=== PATIENT | female | born 1955 | race Hispanic/Latino ===

== ENCOUNTER 2019-11-29 08:44 | Emergency (ER) | payer SELFPAY ==
[2019-11-29 08:51] VITALS: BP 163/83
--- NOTE | 2019-11-29 10:06 | Emergency Department Report ---
ED Fall HPI - General Chief Complaint: Fall Stated Complaint: RT ARM PAIN Time Seen by Provider: 11/29/19 09:47 Source: patient Mode of arrival: Ambulatory - History of Present Illness Initial Comments: 64-year-old female presents to the emergency room complaining of right shoulder right forearm and right upper arm pain status post fall this morning. Patient states that her car was moving and she jumped into to stop it and tripped states she had fallen while trying to get to work. Patient states she made it to work but was sent to the ER for her injuries. 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 MD Complaint: fall -: This morning Fall From: standing Location - Extremities: Right: Shoulder, Arm, Forearm Severity scale (0 -10): 9 Quality: aching Context: tripped/slipped Associated Symptoms: denies - Related Data Allergies Allergy/AdvReac Type Severity Reaction Status Date / Time No Known Allergies Allergy Unverified 11/29/19 08:45 ED Review of Systems ROS: Stated complaint: RT ARM PAIN Other details as noted in HPI Comment: All other systems reviewed and negative ED Past Medical Hx - Past Medical History Previous Medical History?: No - Surgical History Past Surgical History?: No - Social History Smoking Status: Never Smoker Substance Use Type: None ED Physical Exam - General Limitations: No Limitations General appearance: alert, in distress - Head Head exam: Present: atraumatic, normocephalic - Eye Eye exam: Present: normal appearance - ENT ENT exam: Present: mucous membranes moist - Neck Neck exam: Present: full ROM - Expanded Upper Extremity Exam Right Shoulder Exam: Present: full ROM, tenderness Upper Arm exam: Present: normal inspection, full ROM, tenderness Forearm Wrist exam: Present: full ROM, tenderness, swelling - Neurological Exam Neurological exam: Present: alert, oriented X3, normal gait - Psychiatric Psychiatric exam: Present: normal affect, normal mood - Skin Skin exam: Present: warm, dry, intact, normal color. Absent: rash ED Course Vital Signs 11/29/19 08:49 Temperature 97.7 F Pulse Rate 75 Respiratory 16 Rate Blood Pressure 163/83 [Left] O2 Sat by Pulse 99 Oximetry ED Medical Decision Making - Radiology Data Radiology results: report reviewed Patient: LUBNA THORNTON MR#: [id number] : 1955 Acct:[id number] Age/Sex: 64 / F ADM Date: 11/29/19 Loc: ED Attending Dr: Ordering Physician: NANDO TERESA Date of Service: 11/29/19 Procedure(s): XR shoulder 1V RT Accession Number(s): [id number] cc: NANDO TERESA Fluoro Time In Minutes: RIGHT SHOULDER ONE VIEW INDICATION / CLINICAL INFORMATION: PAIN AFTER FALL. COMPARISON: None available. FINDINGS: No significant skeletal abnormality Signer Name: Reese Curran MD FACR Signed: 11/29/2019 10:42 AM Workstation Name: [id number] Transcribed By: MS Dictated By: Reese Curran MD Electronically Authenticated By: Reese Curran MD Signed Date/Time: 11/29/19 104 DD/ 1041 TD/TT: - Medical Decision Making 64-year-old female presents to the emergency room complaining of right shoulder right forearm and right upper arm pain status post fall this morning. Patient states that her car was moving and she jumped into to stop it and t ripped states she had fallen while trying to get to work. Patient states she made it to work but was sent to the ER for her injuries. 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 Critical care attestation.: If time is entered above; I have spent that time in minutes in the direct care of this critically ill patient, excluding procedure time. ED Disposition Clinical Impression: Fall, Abrasion of right upper arm, initial encounter, Right anterior shoulder pain, Pain, joint, forearm, right Disposition: DC-01 TO HOME OR SELFCARE Is pt being admited?: No Does the pt Need Aspirin: No Condition: Stable Instructions: Fall Prevention for Older Adults (ED), Abrasion (ED), Shoulder Sprain (ED), Arthralgia (ED) Additional Instructions: X-rays were all negative for any acute abnormalities. Keep your abrasion clean and dry. Follow-up with an orthopedic provider if her symptoms persist. Take Tylenol as needed for pain management. Referrals: PRIMARY CAREMD [Primary Care Provider] - 3-5 Days DARRYL CARRASCO MD [Staff Physician] - 3-5 Days Forms: Work/School Release Form(ED)
--- NOTE | 2019-11-29 10:45 | XRay Report ---
RIGHT FOREARM 3 VIEWS INDICATION / CLINICAL INFORMATION: PAIN AFTER FALL. COMPARISON: None available. FINDINGS: No significant skeletal abnormality Signer Name: Reese Curran MD FACR Signed: 11/29/2019 10:41 AM Workstation Name: [id number]
--- NOTE | 2019-11-29 10:46 | XRay Report ---
RIGHT SHOULDER ONE VIEW INDICATION / CLINICAL INFORMATION: PAIN AFTER FALL. COMPARISON: None available. FINDINGS: No significant skeletal abnormality Signer Name: Reese Curran MD FACR Signed: 11/29/2019 10:42 AM Workstation Name: [email or web address]
--- NOTE | 2019-11-29 10:47 | XRay Report ---
RIGHT HUMERUS 2 VIEWS INDICATION / CLINICAL INFORMATION: PAIN AFTER FALL. COMPARISON: None available. FINDINGS: No significant skeletal abnormality Signer Name: Reese Curran MD FACR Signed: 11/29/2019 10:43 AM Workstation Name: [id number]
[2019-11-29] MEDS ORDERED: ACETAMINOPHEN 325 MG TAB PO ONE (11:09)
== END 2019-11-29 11:38 | disposition home or self-care (01) ==
LOC: ED 08:44
DX: S40.811A Abrasion of right upper arm, initial encounter (principal); M25.511 Pain in right shoulder; M79.631 Pain in right forearm; W01.0XXA Fall on same level from slipping, tripping and stumbling without subsequent striking against object, initial encounter; Y93.89 Activity, other specified; Y92.89 Other specified places as the place of occurrence of the external cause; Y99.8 Other external cause status
CPT/HCPCS: 99283

== ENCOUNTER 2021-08-31 03:59 | Observation (INO) | payer SELFPAY ==
[2021-08-31 06:02] LABS: Basophils % (Auto) 0.5 % (0.0-1.8); Eosinophils % (Auto) 0.3 % (0.0-4.3); Hematocrit 46.3 % (30.3-42.9); Hemoglobin 15.4 gm/dl (10.1-14.3); Lymphocytes # (Auto) 1.3 K/mm3 (1.2-5.4); Lymphocytes % (Auto) 17.2 % (13.4-35.0); Mean Corpuscular HGB Conc 33 % (30-34); Mean Corpuscular Volume 87 fl (79-97); Monocytes # (Auto) 0.6 K/mm3 (0.0-0.8); Monocytes % (Auto) 7.4 % (0.0-7.3); Platelet Count 309 K/mm3 (140-440); Red Blood Count 5.35 M/mm3 (3.65-5.03); Red Cell Distribution Width 13.6 % (13.2-15.2)
[2021-08-31 06:25] LABS: Alanine Aminotransferase 24 units/L (7-56); Albumin 4.2 g/dL (3.9-5); Blood Urea Nitrogen 7 mg/dL (7-17); Calcium 9.5 mg/dL (8.4-10.2); Hemolysis Index 2
[2021-08-31 06:26] LABS: BUN/Creatinine Ratio 14
[2021-08-31] MEDS ORDERED: POTASSIUM CHLORIDE ER 20 MEQ TAB PO ONE ×2 (06:45→10:47)
--- NOTE | 2021-08-31 06:50 | Emergency Department Report ---
HPI - General Chief Complaint: Nausea/Vomiting/Diarrhea Time Seen by Provider: 08/31/21 06:34 - HPI HPI: 65-year-old female presents to the emergency department via EMS from [facility] with the initial triage complaint of nausea with vomiting. When I went in to see the patient she is patting her chest saying that she is having generalized chest discomfort and shortness of breath and that she "overdosed" on some type of pain medication. She cannot tell me what medication it is, only that it is not ibuprofen, and says that she took 4 pills. She says that she did not take it with the intention of harming herself but was treating some gene ralized pain. She is otherwise a poor historian and cannot tell me what her past medical history is or why [facility]. ED Past Medical Hx - Past Medical History Previous Medical History?: No - Social History Smoking Status: Never Smoker Substance Use Type: None ED Review of Systems ROS: Stated complaint: NAUSEA/VOMITING Other details as noted in HPI Comment: All other systems reviewed and negative Constitutional: denies: chills, fever Eyes: denies: eye pain, vision change ENT: denies: ear pain, throat pain Respiratory: cough, shortness of breath Cardiovascular: chest pain Gastrointestinal: nausea, vomiting Musculoskeletal: myalgia. denies: joint swelling Skin: denies: rash, lesions Neurological: denies: numbness, paresthesias Physical Exam - Physical Exam Vital Signs: Vital Signs 08/31/21 04:06 Temperature 99.0 F Pulse Rate 100 H Respiratory 16 Rate Blood Pressure 150/100 [Left] O2 Sat by Pulse 98 Oximetry Physical Exam: GENERAL: The patient is well-developed well-nourished. Patient is retching. HENT: Normocephalic. Atraumatic. Patient has moist mucous membranes. EYES: Extraocular motions are intact. NECK: Supple. Trachea is midline. CHEST/LUNGS: Clear to auscultation. A dry cough is heard during examination. No tachypnea. HEART/CARDIOVASCULAR: Regular. There is no tachycardia. There is no murmur. ABDOMEN: Abdomen is soft, nontender. Patient has normal bowel sounds. There is no abdominal distention. SKIN: Skin is warm and dry. NEURO: The patient is awake, alert. The patient has no focal neurologic deficits. Normal speech. MUSCULOSKELETAL: There is no tenderness or deformity. There is no limitation range of motion. ED Course Vital Signs 08/31/21 04:06 Temperature 99.0 F Pulse Rate 100 H Respiratory 16 Rate Blood Pressure 150/100 [Left] O2 Sat by Pulse 98 Oximetry ED Medical Decision Making - Lab Data Result diagrams: 08/31/21 05:39 08/31/21 05:39 Lab Results 08/31/21 08/31/21 08/31/21 Range/Units 05:39 05:39 05:39 WBC 7.7 (4.5-11.0) K/mm3 RBC 5.35 H (3.65-5.03) M/mm3 Hgb 15.4 H (10.1-14.3) gm/dl Hct 46.3 H (30.3-42.9) % MCV 87 (79-97) fl MCH 29 (28-32) pg MCHC 33 (30-34) % RDW 13.6 (13.2-15.2) % Plt Count 309 (140-440) K/mm3 Lymph % (Auto) 17.2 (13.4-35.0) % [place] % (Auto) 7.4 H (0.0-7.3) % Eos % (Auto) 0.3 (0.0-4.3) % Baso % (Auto) 0.5 (0.0-1.8) % Lymph # (Auto) 1.3 (1.2-5.4) K/mm3 [place] # (Auto) 0.6 (0.0-0.8) K/mm3 Eos # (Auto) 0.0 (0.0-0.4) K/mm3 Baso # (Auto) 0.0 (0.0-0.1) K/mm3 Seg Neutrophils % 74.6 H (40.0-70.0) % Seg Neutrophils # 5.8 (1.8-7.7) K/mm3 Sodium 138 (137-145) mmol/L Potassium 2.4 L* (3.6-5.0) mmol/L Chloride 97.7 L (98-107) mmol/L Carbon Dioxide 24 (22-30) mmol/L Anion Gap 19 mmol/L BUN 7 (7-17) mg/dL Creatinine 0.5 L (0.6-1.2) mg/dL Estimated GFR > 60 ml/min BUN/Creatinine Ratio 14 % Glucose 139 H (65-100) mg/dL Calcium 9.5 (8.4-10.2) mg/dL Magnesium 1.90 (1.7-2.3) mg/dL Total Bilirubin 0.70 (0.1-1.2) mg/dL AST 15 (5-40) units/L ALT 24 (7-56) units/L Alkaline Phosphatase 110 (35-129) units/L Troponin T < 0.010 (0.00-0.029) ng/mL Total Protein 7.2 (6.3-8.2) g/dL Albumin 4.2 (3.9-5) g/dL Albumin/Globulin Ratio 1.4 % Lipase 19 (13-60) units/L - EKG Data -: EKG Interpreted by Me EKG shows normal: sinus rhythm, axis, intervals, QRS complexes (Right bundle branch block), ST-T waves Rate: normal - EKG Data When compared to previous EKG there are: previous EKG unavailable Interpretation: other (Sinus rhythm, right bundle branch block, rate of [address] elevation NV.) - Radiology Data Radiology results: image reviewed interpreted by me: Chest x-ray does not show any acute process. There are no pleural effusions, obvious pneumonia and there is no pneumothorax. No widened mediastinum. Abdominal x-ray shows nonspecific nonobstructive bowel gas. No free air. - Medical Decision Making This patient presents to the emergency department with a complaint of nausea with vomiting. She later complained of some generalized chest discomfort and something about a possible overdose. Her labs do appear consistent with nausea with vomiting and she has severe hypokalemia with a potassium level of 2.4. The rest of her labs have been thus far unremarkable including CBC, acetaminophen, salicylate, negative troponin. Chest x-ray does not show any pneumonia, pleural effusions, pneumothorax, widened mediastinum. Abdominal x-ray shows nonspecific nonobstructive bowel gas. No free air. EKG does not have any morphology consistent with ST elevation myocardial infarction. I have ordered both IV and oral potassium chloride for replacement. She will be admitted to the hospital for further evaluation and was accepted for admission by the hospitalist, Dr. Vazquez. Critical Care Time: No Critical care attestation.: If time is entered above; I have spent that time in minutes in the direct care of this critically ill patient, excluding procedure time. ED Disposition Clinical Impression: Hypokalemia Nausea & vomiting Qualifiers: Vomiting type: unspecified Qualified Code(s): R11.2 - Nausea with vomiting, unspecified Hypertension Qualifiers: Hypertension type: primary hypertension Qualified Code(s): I10 - Essential (primary) hypertension Disposition: 09 ADMITTED INPATIENT Is pt being admited?: Yes Condition: Serious Time of Disposition: 08:01
[2021-08-31] MEDS ORDERED: SODIUM CHLORIDE 0.9% 1000 ML 1,000 ML IV ONE (07:57)
[2021-08-31] MEDS ORDERED: ONDANSETRON 4 MG/2 ML INJ IV ONE (07:57)
[2021-08-31] MEDS: POTASSIUM CHLORIDE 10 MEQ 10 MEQ/100 ML BAG IV SCH ×2 (08:00→09:12)
--- NOTE | 2021-08-31 08:03 | History and Physical Report ---
History of Present Illness Date of examination: 08/31/21 History of present illness: HPI: 65 yo f presenting from [facility] with past medical history of GERD presenting to our facility with complaint of intractable nausea vomiting of 1 days duration. She says that she has tenderness in her abdomen. She states that she had eaten [employer] 2 days ago and since then has been having abdominal discomfort. Patient denied any fevers, chills, hematuria, hematemesis, melena in stool. She had no prior GI work-up in her past. She states that after initial treatment with IV fluids, IV Zofran in the emergency department she started to feel better. She states that she currently has an appetite. ROS negative except for above. ED Course: KCL IV, IVF, IV zofran PMHx:GERD PSHx: denies FHx:review, noncontributory SHx: Tobacco use- 1 pack per week ETOH Use-denies Recreational Drug Use-denies Medications and Allergies Allergies Allergy/AdvReac Type Severity Reaction Status Date / Time No Known Allergies Allergy Verified 08/31/21 04:06 Active Meds: Active Medications Potassium Chloride (Kcl 10meq/100ml) 10 meq in 100 mls @ 100 mls/hr IV Q1H BRINDA Stop: 08/31/21 08:59 Sodium Chloride (Nacl 0.9% 1000 Ml) 1,000 mls @ 125 mls/hr IV ONCE ONE Stop: 08/31/21 15:56 Review of Systems All systems: negative Gastrointestinal: abdominal pain, nausea, vomiting Exam - Physical Exam Narrative exam: Physical Exam: VITAL SIGNS: Reviewed. GENERAL: The patient appears normally developed, Vital signs as documented. HEAD: No signs of head trauma. EYES: Pupils are equal. Extraocular motions intact. EARS: Hearing grossly intact. MOUTH: Oropharynx is normal. NECK: No adenopathy, no JVD. CHEST: Chest with clear breath sounds bilaterally. No wheezes, rales, or rhonchi. CARDIAC: Regular rate and rhythm. S1 and S2, without murmurs, gallops, or rubs. VASCULAR: No Edema. Peripheral pulses normal and equal in all extremities. ABDOMEN: Soft, non tender and non distended. No rebound or guarding, and no masses palpated. Bowel Sounds normal. MUSCULOSKELETAL: Good range of motion of all major joints. Extremities without clubbing, cyanosis or edema. NEUROLOGIC EXAM: Alert and oriented x 4. no focal sensory or strength deficits. PSYCHIATRIC: Mood normal. SKIN: detail exam as documented in skin assessment - Constitutional Vitals: Temp Pulse Resp BP Pulse Ox 99.0 F 100 H 16 150/100 98 08/31/21 04:06 08/31/21 04:06 08/31/21 04:06 08/31/21 04:06 08/31/21 04:06 HEART Score - HEART Score Troponin: Troponin T < 0.010 ng/mL (0.00-0.029) 08/31/21 05:39 Results - Labs CBC & Chem 7: 08/31/21 05:39 08/31/21 05:39 Labs: Laboratory Last Values WBC 7.7 K/mm3 (4.5-11.0) 08/31/21 05:39 RBC 5.35 M/mm3 (3.65-5.03) H 08/31/21 05:39 Hgb 15.4 gm/dl (10.1-14.3) H 08/31/21 05:39 Hct 46.3 % (30.3-42.9) H 08/31/21 05:39 MCV 87 fl (79-97) 08/31/21 05:39 MCH 29 pg (28-32) 08/31/21 05:39 MCHC 33 % (30-34) 08/31/21 05:39 RDW 13.6 % (13.2-15.2) 08/31/21 05:39 Plt Count 309 K/mm3 (140-440) 08/31/21 05:39 Lymph % (Auto) 17.2 % (13.4-35.0) 08/31/21 05:39 [place] % (Auto) 7.4 % (0.0-7.3) H 08/31/21 05:39 Eos % (Auto) 0.3 % (0.0-4.3) 08/31/21 05:39 Baso % (Auto) 0.5 % (0.0-1.8) 08/31/21 05:39 Lymph # (Auto) 1.3 K/mm3 (1.2-5.4) 08/31/21 05:39 [place] # (Auto) 0.6 K/mm3 (0.0-0.8) 08/31/21 05:39 Eos # (Auto) 0.0 K/mm3 (0.0-0.4) 08/31/21 05:39 Baso # (Auto) 0.0 K/mm3 (0.0-0.1) 08/31/21 05:39 Seg Neutrophils % 74.6 % (40.0-70.0) H 08/31/21 05:39 Seg Neutrophils # 5.8 K/mm3 (1.8-7.7) 08/31/21 05:39 Sodium 138 mmol/L (137-145) 08/31/21 05:39 Potassium 2.4 mmol/L (3.6-5.0) L* 08/31/21 05:39 Chloride 97.7 mmol/L (98-107) L 08/31/21 05:39 Carbon Dioxide 24 mmol/L (22-30) 08/31/21 05:39 Anion Gap 19 mmol/L 08/31/21 05:39 BUN 7 mg/dL (7-17) 08/31/21 05:39 Creatinine 0.5 mg/dL (0.6-1.2) L 08/31/21 05:39 Estimated GFR > 60 ml/min 08/31/21 05:39 BUN/Creatinine Ratio 14 % 08/31/21 05:39 Glucose 139 mg/dL (65-100) H 08/31/21 05:39 Calcium 9.5 mg/dL (8.4-10.2) 08/31/21 05:39 Magnesium 1.90 mg/dL (1.7-2.3) 08/31/21 05:39 Total Bilirubin 0.70 mg/dL (0.1-1.2) 08/31/21 05:39 AST 15 units/L (5-40) 08/31/21 05:39 ALT 24 units/L (7-56) 08/31/21 05:39 Alkaline Phosphatase 110 units/L (35-129) 08/31/21 05:39 Troponin T < 0.010 ng/mL (0.00-0.029) 08/31/21 05:39 Total Protein 7.2 g/dL (6.3-8.2) 08/31/21 05:39 Albumin 4.2 g/dL (3.9-5) 08/31/21 05:39 Albumin/Globulin Ratio 1.4 % 08/31/21 05:39 Lipase 19 units/L (13-60) 08/31/21 05:39 Assessment and Plan Assessment and plan: #Acute gastroenteritis - suspect food poisoning as etiology - no wbc count, abd xr negative - IVF + IV zofran - will start on clear liquid diet - protonix po - sucralfate po #Intractable nausea vomiting -management as above #Hypokalemia - given IV K, - start oral supplementation - K 2.6 on admission, repeat pending for this afternoon #Nicotine abuse - behavioral health counseling on smoking cessation and advised on methods to quit. +15 mins #Advance care planning Disease education conducted, care plan discussed, diagnoses discussed, prognosis discussed, patient is full code, patient acknowledges understanding and agree with care plan, +30 minutes. Dispo: Able to tolerate po, will follow up after lunch. Rapid covid test ordered. Can potentially return to [place] this afternoon.
--- NOTE | 2021-08-31 08:19 | XRay Report ---
ABDOMINAL SERIES WITH CHEST X-RAY ONE VIEW INDICATION: Chest pain. COMPARISON: None. IMPRESSION: Supine and upright views of the abdomen demonstrate no evidence for dilated bowel loops, fluid levels or free air. There is normal stool in the colon. Cholecystectomy clips are suspected in the right upper quadrant. A few tiny calcifications overlie the kidney shadows, right greater than left, which could represent nephrolithiasis. Single view of the chest is unremarkable demonstrating n ormal heart and mediastinal structures and clear lungs. The bony structures are osteopenic but grossl y intact. Mild lumbar scoliosis is noted. Signer Name: Dhaval Francois Jr, MD Signed: 08/31/2021 8:14 AM Workstation Name: [id number]
[2021-08-31] MEDS ORDERED: ACETAMINOPHEN 325 MG TAB PO PRN (08:30)
[2021-08-31] MEDS ORDERED: MORPHINE 2 MG/1 ML INJ IV PRN (08:30)
[2021-08-31] MEDS ORDERED: ONDANSETRON 4 MG/2 ML INJ IV PRN (09:00)
[2021-08-31] MEDS ORDERED: PANTOPRAZOLE 40 MG TAB PO SCH (11:00)
[2021-08-31 15:18] LABS: Blood Urea Nitrogen 7 mg/dL (7-17); Calcium 9.2 mg/dL (8.4-10.2); Hemolysis Index 3
[2021-08-31 15:27] LABS: BUN/Creatinine Ratio 12
--- NOTE | 2021-08-31 15:31 | Discharge Summary ---
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 She says that she has tenderness in her abdomen. She states that she had eaten [employer] 2 days ago and since then has been having abdominal d iscomfort. Patient denied any fevers, chills, hematuria, hematemesis, melena in stool. She had no prior GI work-up in her past. She states that after initial treatment with IV fluids, IV Zofran in the emergency department she started to feel better. She states that she currently has an appetite. ROS negative except for above. Hospital Course: Allison Ying was admitted for intractible nausea, vomiting due to acute gastroenteritis believed to be from food poisoning. She wound found to have a low potassium of 2.4. She was given IVF, IV and oral potassium, and IV zofran for her condition. Patient is able to tolerate a diet now. COVID test is negative. She improved and will be discharged back to [facility] with prescriptions for protonix 40 mg po daily, Kdur 20 MEQ po daily x 5 days total, Zofran 4 mg po q8hr as needed for nausea. Disposition: 03 [facility] Final Discharge Diagnosis (Prints w/discharge instructions): acute gastroenteritis, hypokalemia Core Measure Documentation - Palliative Care Palliative Care/ Comfort Measures: Not Applicable - Core Measures Any of the following diagnoses?: none Exam - Physical Exam Narrative exam: Physical Exam: VITAL SIGNS: Reviewed. GENERAL: The patient appears normally developed, Vital signs as documented. HEAD: No signs of head trauma. EYES: Pupils are equal. Extraocular motions intact. EARS: Hearing grossly intact. MOUTH: Oropharynx is normal. NECK: No adenopathy, no JVD. CHEST: Chest with clear breath sounds bilaterally. No wheezes, rales, or rhonchi. CARDIAC: Regular rate and rhythm. S1 and S2, without murmurs, gallops, or rubs. VASCULAR: No Edema. Peripheral pulses normal and equal in all extremities. ABDOMEN: Soft, non tender and non distended. No rebound or guarding, and no masses palpated. Bowel Sounds normal. MUSCULOSKELETAL: Good range of motion of all major joints. Extremities without clubbing, cyanosis or edema. NEUROLOGIC EXAM: Alert and oriented x 4. no focal sensory or strength deficits. PSYCHIATRIC: Mood normal. SKIN: detail exam as documented in skin assessment - Constitutional Vitals: Temp Pulse Resp BP Pulse Ox 98.8 F 68 13 143/71 97 08/31/21 08:50 08/31/21 09:45 08/31/21 09:45 08/31/21 09:45 08/31/21 09:45 Plan Plan of Treatment: Allison Ying was admitted for intractible nausea, vomiting due to acute gastroenteritis believed to be from food poisoning. She wound found to have a low potassium of 2.4. She was given IVF, IV and oral potassium, and IV zofran for her condition. Patient is able to tolerate a diet now. COVID test is negative. She improved and will be discharged back to [facility] with prescriptions for protonix 40 mg po daily, Kdur 20 MEQ po daily x 5 days total, Zofran 4 mg po q8hr as needed for nausea. Follow up with: PRIMARY CARE, [Primary Care Provider] - 3-5 Days Prescriptions: Potassium Chloride [K-Dur] 20 meq PO QDAY 5 Days #5 tab Pantoprazole [Protonix TAB] 40 mg PO QDAC 30 Days #30 tablet Ondansetron HCl [Zofran] 4 mg PO Q8HR PRN 30 Days #90 tab PRN Reason: Nausea
[2021-08-31 20:21] VITALS: BP 147/79
--- NOTE | 2021-09-01 08:46 | Electrocardiograph Report ---
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
== END 2021-08-31 21:21 | disposition home or self-care (01) ==
LOC: ED 03:59 → 4A 08:04
PROVIDERS: ADMIT Internal Medicine; ATTEND Internal Medicine
DX: K52.9 Noninfective gastroenteritis and colitis, unspecified (principal); Z20.822 Contact with and (suspected) exposure to COVID-19; E87.6 Hypokalemia; I10 Essential (primary) hypertension; K21.9 Gastro-esophageal reflux disease without esophagitis; F17.210 Nicotine dependence, cigarettes, uncomplicated
CPT/HCPCS: 36415; 74022; 80053; 82962; 83690; 83735; 84484; 85025; 93005; 93010; 96365; 96375; 99285; G0378; J2405; J7030; U0003; 80048; 80320; Q0162; G0480